=== PATIENT | female | born 1945 | race Caucasian/White ===

== ENCOUNTER 2019-10-25 14:07 | Observation (INO) ==
[2019-10-25] MEDS ORDERED: ALPRAZolam 0.25 MG TABLET PO ONE (14:31)
[2019-10-25] MEDS ORDERED: Ibuprofen 800 MG TABLET PO ONE (14:32)
[2019-10-25 14:48] LABS: Basophils % 0.4 %; Eosinophils # 0.1 K/mcL (0.0-0.6); Eosinophils % 1.3 %; Hematocrit 38.1 % (35.3-44.9); Hemoglobin 12.8 g/dL (11.5-15.4); Immature Granulocytes % 0.2 % (0-4); Lymphocytes # 1.9 K/mcL (0.6-4.6); Lymphocytes % 18.7 %; Mean Corpuscular HGB Conc 33.6 g/dL (31.6-35.5); Mean Corpuscular Hemoglobin 29.3 pg (28.0-33.3); Mean Corpuscular Volume 87.2 fL (83.0-100.0); Mean Platelet Volume 10.4 fL (9.4-12.4); Monocytes # 0.4 K/mcL (0.0-1.3); Monocytes % 4.2 %; Neutrophils # 7.7 K/mcL (1.6-8.9); Platelet Count 225 K/mcL (140-400); Red Blood Count 4.37 M/mcL (3.82-4.97); Red Cell Distribution Width 13.4 % (11.5-14.5); Segmented Neutrophils % 75.2 %; White Blood Count 10.2 K/mcL (4.3-11.1)
[2019-10-25 15:08] LABS: BUN/Creatinine Ratio 7 (6-26); Blood Urea Nitrogen 12 mg/dL (8-23); Calcium 9.5 mg/dL (8.6-10.3); Carbon Dioxide 25 mEq/L (23-29); Chloride 103 mEq/L (98-107); Glucose 144 mg/dL (70-105); Osmolality,Calculated 284 (280-300); Potassium 3.7 mEq/L (3.5-5.1); Sodium 136 mEq/L (136-145); Troponin I < 0.03 ng/mL (< 0.04); eGFR For African Americans 36 (> 60); eGFR For Non-African Americans 29 (> 60)
[2019-10-25] MEDS ORDERED: Ondansetron 4 MG/2 ML VIAL IVP PRN (15:58)
[2019-10-25] MEDS ORDERED: Acetaminophen 325 MG TABLET PO PRN (15:58)
[2019-10-25] MEDS ORDERED: Naloxone 0.4 MG/ML INJ IVP PRN (15:58)
[2019-10-25] MEDS ORDERED: ALPRAZolam 0.25 MG TABLET PO PRN (16:00)
[2019-10-25] MEDS ORDERED: 0.9 % Sodium Chloride 1,000 ML IVC SCH (16:00)
[2019-10-25] MEDS: 0.9 % Sodium Chloride 1,000 ML IVC SCH (20:05)
[2019-10-25] MEDS ORDERED: Mirtazapine 15 MG TABLET PO SCH (21:00)
[2019-10-26] MEDS: 0.9 % Sodium Chloride 1,000 ML IVC SCH (05:56)
[2019-10-26 06:57] LABS: Calcium 8.9 mg/dL (8.6-10.3); Chol/HDL Ratio 2.7 (0-4.9); Magnesium 1.6 mg/dL (1.6-2.6); Potassium 3.7 mEq/L (3.5-5.1)
[2019-10-26 08:26] VITALS: BP 185/77
[2019-10-26] MEDS ORDERED: Aspirin 81 MG TAB.CHEW PO SCH (09:00)
[2019-10-26] MEDS ORDERED: Loratadine 10 MG TABLET PO SCH (09:00)
[2019-10-26] MEDS ORDERED: Fluticasone Propionate Nasal 50 MCG/SPRAY BOTTLE NS SCH (09:00)
[2019-10-26] MEDS ORDERED: FLU Vac QV 19-20 (6Month+)/PF 0.5 ML SYRINGE IM ONE (15:19)
== END 2019-10-26 16:54 | disposition home or self-care (01) ==
LOC: EMEROOPIK 14:07 → INPPIK 14:07
PROVIDERS: ADMIT Family Medicine; ATTEND Family Medicine